=== PATIENT | male | born 1945 | race Caucasian/White ===

== ENCOUNTER 2022-07-18 14:07 | Inpatient (IN) ==
[2022-07-18] MEDS ORDERED: Albuterol/Ipratropium NEB.SOL (2.5/0.5 MG) 3 ML NEB.SOLN INH ONE (15:46)
[2022-07-18 15:47] LABS: ABS Basophils 0.1 10^3/uL (0.0-0.1); ABS Eosinophils 0.2 10^3/uL (0.0-0.5); ABS Lymphocytes 0.8 10^3/uL (1.0-4.8); ABS Monocytes 1.5 10^3/uL (0.0-1.1); ABS Neutrophils 12.9 10^3/uL (1.5-7.6); ABS Nucleated RBC 0.02 10^3/ul; Eosinophil % 1.4 %; Hematocrit 33.6 % (38-53); Hemoglobin 10.4 g/dL (13.2-16.3); Lymphocyte % 5.3 %; Mean Corpuscular Hemoglobin 23.4 pg (27-33); Mean Corpuscular Hgb Conc 31.1 g/dL (31-36); Mean Corpuscular Volume 75.4 fL (80-97); Mean Platelet Volume 8.1 fL (7.5-11.2); Nucleated Red Blood Cells % 0.1 /100 WBC (0.0-0.4); Platelet Count 261 10^3/uL (150-450); Red Blood Count 4.45 10^6/uL (4.06-5.63); Red Cell Distribution Width 22.9 % (12-17); White Blood Count 15.6 10^3/uL (3.6-10.2)
[2022-07-18] MEDS ORDERED: Furosemide 40 mg/4 ml IV VIAL IV SLOW PU ONE (16:04)
[2022-07-18 16:33] LABS: Albumin 3.6 g/dL (3.2-5.2); Albumin/Globulin Ratio 1.1 (1-3); Calcium 8.7 mg/dL (8.6-10.3); Creatinine, Serum 1.81 mg/dL (0.67-1.17); Globulin 3.3 g/dL (2-4); Potassium 4.8 mmol/L (3.5-5.0); Total Bilirubin 0.6 mg/dL (0.2-1.0); Total Protein 6.9 g/dL (6.4-8.9); eGFR CKD-EPI 37.8 (>60)
[2022-07-18 18:16] LABS: Ferritin 37.8 ng/mL (24-336)
[2022-07-18] MEDS ORDERED: Furosemide 40 mg/4 ml IV VIAL IV ONE ×2 (19:00→19:29)
[2022-07-18 19:12] LABS: Magnesium 2.5 mg/dL (1.9-2.7)
[2022-07-18] MEDS ORDERED: Dextrose 50% Syringe 50 ml 25 GM/50 ML SYRINGE IV PUSH PRN (19:36)
[2022-07-18] MEDS ORDERED: Albuterol HFA INHALER 8 gm MDI INH PRN (19:38)
[2022-07-18] MEDS ORDERED: Piperacillin/Tazobac ADVAN 3.375 GM in NS 0.9% 100 ml BAG 100 ML IV ONE (19:57)
[2022-07-18] MEDS ORDERED: Zosyn per Pharmacy NOTE FOLLOW UP SCH (20:00)
[2022-07-18] MEDS ORDERED: cefTRIAXone 1 gm/50 mL D5W 1 GM/50 ML BAG IV SCH (20:00)
[2022-07-18] MEDS ORDERED: Warfarin per PHARMACY **NOTE FOLLOW UP SCH (20:00)
[2022-07-18] MEDS ORDERED: Vancomycin 1,000 MG in NS 0.9% 250 ml 250 ML IVPB SCH (20:00)
[2022-07-18] MEDS ORDERED: Iron Sucrose 200 MG in NS 0.9% 100 ml BAG 100 ML IVPB SCH (20:00)
[2022-07-18] MEDS ORDERED: Vancomycin per Pharmacy 1 EA NOTE FOLLOW UP PRN (22:15)
[2022-07-18] MEDS ORDERED: Vancomycin 1,750 MG in NS 0.9% 500 ml BAG 500 ML IVPB ONE (23:00)
[2022-07-19] MEDS ORDERED: Zosyn 3.375 GM IV - ED ONCE IV ONE (02:00)
[2022-07-19 05:37] LABS: ABS Basophils 0.1 10^3/uL (0.0-0.1); ABS Eosinophils 0.2 10^3/uL (0.0-0.5); ABS Lymphocytes 0.6 10^3/uL (1.0-4.8); ABS Monocytes 1.1 10^3/uL (0.0-1.1); ABS Neutrophils 14.4 10^3/uL (1.5-7.6); Eosinophil % 1.3 %; Hematocrit 33.6 % (38-53); Hemoglobin 10.5 g/dL (13.2-16.3); Lymphocyte % 3.7 %; Mean Corpuscular Hemoglobin 23.6 pg (27-33); Mean Corpuscular Hgb Conc 31.3 g/dL (31-36); Mean Corpuscular Volume 75.2 fL (80-97); Mean Platelet Volume 7.9 fL (7.5-11.2); Platelet Count 257 10^3/uL (150-450); Red Blood Count 4.47 10^6/uL (4.06-5.63); Red Cell Distribution Width 22.5 % (12-17); White Blood Count 16.4 10^3/uL (3.6-10.2)
[2022-07-19 05:55] LABS: INR 2.93 (0.88-1.18)
[2022-07-19 06:40] LABS: Calcium 8.5 mg/dL (8.6-10.3); Creatinine, Serum 1.87 mg/dL (0.67-1.17); Magnesium 2.3 mg/dL (1.9-2.7); Potassium 4.1 mmol/L (3.5-5.0); eGFR CKD-EPI 36.3 (>60)
[2022-07-19] MEDS ORDERED: ZOSYN 3.375 GM Q8H per EXTENDED INFUSION IV SCH (08:00)
[2022-07-19] MEDS ORDERED: Furosemide 40 mg/4 ml IV VIAL IV SCH (09:00)
[2022-07-19] MEDS ORDERED: SPIRIVA Respimat (tiotropium) 2.5 mcg/inh Inhaler INH SCH (09:00)
[2022-07-19] MEDS: Aspirin EC 81 mg TAB.EC (enteric coated) PO SCH (09:17)
[2022-07-19] MEDS ORDERED: methylPREDNISolone SOD SUCC 125 mg 2 ML VIAL IV ONE (12:53)
[2022-07-19] MEDS ORDERED: Furosemide 40 mg/4 ml IV VIAL IV SLOW PU ONE (12:54)
[2022-07-19] MEDS: Albuterol/Ipratropium NEB.SOL (2.5/0.5 MG) 3 ML NEB.SOLN INH PRN ×2 (13:03→15:52)
[2022-07-19 13:38] LABS: PCO2 Arterial 40 mmHg (35-45); PO2 Arterial 75 mmHg (80-100)
[2022-07-19] MEDS ORDERED: methylPREDNISolone SOD SUCC 40 mg/ml 1 ml VIAL IV SCH (14:00)
[2022-07-19] MEDS: Furosemide 100 mg/10 ml IV 100 MG in NS 0.9% 100 ml BAG 90 ML IV SCH (15:33)
[2022-07-19] MEDS: ZOSYN 3.375 GM Q8H per EXTENDED INFUSION IV SCH (16:14)
[2022-07-19 16:44] LABS: Urine Appearance Cloudy; Urine Bilirubin Negative (Negative); Urine Blood Negative (Negative); Urine Color Yellow; Urine Glucose Negative (Negative); Urine Ketones Negative (Negative); Urine Nitrite Negative (Negative); Urine Protein Negative (Negative); Urine Specific Gravity 1.011 (1.002-1.030); Urine Urobilinogen Negative (Negative)
[2022-07-19] MEDS ORDERED: .Amiodarone 24HR ONLY IV Protocol Order Note IV ONE (17:15)
[2022-07-19] MEDS ORDERED: Amiodarone 150 mg IVPREMIX 150 MG/100 ML BAG IV ONE (17:15)
[2022-07-19] MEDS ORDERED: Amiodarone 360 MG IVPREMIX 360 MG/200 ML BAG IV SCH ×2 (17:30→23:30)
[2022-07-19 18:57] LABS: High Sensitivity Troponin 1 Hr 9 pg/mL (<20)
[2022-07-19] MEDS ORDERED: Iron Sucrose 200 MG in NS 0.9% 100 ml BAG 100 ML IVPB SCH (20:00)
[2022-07-19] MEDS: methylPREDNISolone SOD SUCC 40 mg/ml 1 ml VIAL IV SCH (21:13)
[2022-07-19] MEDS ORDERED: Vancomycin 1000 MG in NS 0.9% 250 ML IVPB SCH (22:00)
[2022-07-19] MEDS: Vancomycin 1000 MG in NS 0.9% 250 ML IVPB SCH (22:14)
[2022-07-20] MEDS: ZOSYN 3.375 GM Q8H per EXTENDED INFUSION IV SCH ×3 (00:07→15:56)
[2022-07-20 03:57] LABS: ABS Lymphocytes 0.4 10^3/uL (1.0-4.8); ABS Monocytes 0.2 10^3/uL (0.0-1.1); ABS Neutrophils 12.5 10^3/uL (1.5-7.6); Hematocrit 31.6 % (38-53); Hemoglobin 9.8 g/dL (13.2-16.3); Lymphocyte % 3.2 %; Mean Corpuscular Hemoglobin 23.5 pg (27-33); Mean Corpuscular Volume 75.7 fL (80-97); Mean Platelet Volume 8.1 fL (7.5-11.2); Platelet Count 241 10^3/uL (150-450); Red Blood Count 4.18 10^6/uL (4.06-5.63); Red Cell Distribution Width 22.7 % (12-17); White Blood Count 13.1 10^3/uL (3.6-10.2)
[2022-07-20 04:05] LABS: INR 2.55 (0.88-1.18)
[2022-07-20 04:07] LABS: CO2 Carbon Dioxide 27 mmol/L (22-32); Calcium 8.5 mg/dL (8.6-10.3); Chloride 101 mmol/L (101-111); Sodium 136 mmol/L (135-145)
[2022-07-20 04:12] LABS: Blood Urea Nitrogen 51 mg/dL (6-24); Creatinine, Serum 2.08 mg/dL (0.67-1.17); Glucose 166 mg/dL (70-100)
[2022-07-20 04:16] LABS: Anion Gap 8 mmol/L (2-16)
[2022-07-20 05:11] LABS: Magnesium 2.2 mg/dL (1.9-2.7); Potassium Redraw 3.9 mmol/L (3.5-5.0)
[2022-07-20] MEDS: methylPREDNISolone SOD SUCC 40 mg/ml 1 ml VIAL IV SCH ×3 (05:41→20:18)
[2022-07-20 08:44] LABS: Digoxin < 0.3 ng/ml (0.8-2.0)
[2022-07-20] MEDS: Aspirin EC 81 mg TAB.EC (enteric coated) PO SCH (08:53)
[2022-07-20] MEDS ORDERED: Warfarin per PHARMACY **NOTE FOLLOW UP SCH (11:00)
[2022-07-20] MEDS: Furosemide 100 mg/10 ml IV 100 MG in NS 0.9% 100 ml BAG 90 ML IV SCH (11:31)
[2022-07-20] MEDS ORDERED: Potassium Chloride LIQUID 20 MEQ/15 ML LIQUID PO ONE (16:17)
[2022-07-20] MEDS: Warfarin DAILY REMINDER **NOTE FOLLOW UP SCH (18:46)
[2022-07-20] MEDS: Insulin GLARGINE 100 un/ml 10 ml VIAL SUBCUT SCH (20:18)
[2022-07-20] MEDS: Vancomycin 1000 MG in NS 0.9% 250 ML IVPB SCH (22:15)
[2022-07-21] MEDS: ZOSYN 3.375 GM Q8H per EXTENDED INFUSION IV SCH ×3 (01:17→17:34)
[2022-07-21 05:40] LABS: Hematocrit 30.8 % (38-53); Hemoglobin 9.4 g/dL (13.2-16.3); Mean Corpuscular Hemoglobin 23.4 pg (27-33); Mean Corpuscular Hgb Conc 30.7 g/dL (31-36); Mean Corpuscular Volume 76.3 fL (80-97); Mean Platelet Volume 8.1 fL (7.5-11.2); Platelet Count 260 10^3/uL (150-450); Red Blood Count 4.03 10^6/uL (4.06-5.63); Red Cell Distribution Width 22.4 % (12-17); White Blood Count 19.4 10^3/uL (3.6-10.2)
[2022-07-21 05:47] LABS: INR 2.04 (0.88-1.18)
[2022-07-21 06:07] LABS: ABS Basophils 0.3 10^3/uL (0.0-0.1); ABS Lymphocytes 0.4 10^3/uL (1.0-4.8); ABS Monocytes 0.4 10^3/uL (0.0-1.1); ABS Neutrophils 18.2 10^3/uL (1.5-7.6); ABS Nucleated RBC 0.01 10^3/ul; Lymphocyte % 2.2 %
[2022-07-21 06:10] LABS: Calcium 8.8 mg/dL (8.6-10.3); Creatinine, Serum 2.25 mg/dL (0.67-1.17); Magnesium 2.3 mg/dL (1.9-2.7); Potassium 3.5 mmol/L (3.5-5.0); eGFR CKD-EPI 29.1 (>60)
[2022-07-21] MEDS: methylPREDNISolone SOD SUCC 40 mg/ml 1 ml VIAL IV SCH ×2 (07:41→20:46)
[2022-07-21] MEDS: Aspirin EC 81 mg TAB.EC (enteric coated) PO SCH (08:05)
[2022-07-21] MEDS: Furosemide 100 mg/10 ml IV 100 MG in NS 0.9% 100 ml BAG 90 ML IV SCH (08:31)
[2022-07-21] MEDS: Warfarin DAILY REMINDER **NOTE FOLLOW UP SCH (19:10)
[2022-07-21] MEDS: Haloperidol 5 mg/ml SDV IV/IM 5 MG/ML AMP IV SLOW PU PRN (19:42)
[2022-07-21] MEDS: Insulin GLARGINE 100 un/ml 10 ml VIAL SUBCUT SCH (21:18)
[2022-07-21] MEDS ORDERED: Vancomycin Trough Check NOTE FOLLOW UP ONE (21:30)
[2022-07-21] MEDS: Vancomycin 1000 MG in NS 0.9% 250 ML IVPB SCH (22:46)
[2022-07-22] MEDS: Furosemide 100 mg/10 ml IV 100 MG in NS 0.9% 100 ml BAG 90 ML IV SCH ×2 (01:50→16:53)
[2022-07-22] MEDS: Haloperidol 5 mg/ml SDV IV/IM 5 MG/ML AMP IV SLOW PU PRN (03:45)
[2022-07-22] MEDS ORDERED: ZOSYN 3.375 GM Q8H per EXTENDED INFUSION IV SCH (04:00)
[2022-07-22 04:26] LABS: ABS Lymphocytes 0.5 10^3/uL (1.0-4.8); ABS Monocytes 0.9 10^3/uL (0.0-1.1); ABS Neutrophils 15.6 10^3/uL (1.5-7.6); ABS Nucleated RBC 0.03 10^3/ul; Hematocrit 30.1 % (38-53); Hemoglobin 9.5 g/dL (13.2-16.3); Lymphocyte % 3.1 %; Mean Corpuscular Hemoglobin 23.7 pg (27-33); Mean Corpuscular Hgb Conc 31.5 g/dL (31-36); Mean Corpuscular Volume 75.4 fL (80-97); Mean Platelet Volume 7.6 fL (7.5-11.2); Nucleated Red Blood Cells % 0.2 /100 WBC (0.0-0.4); Platelet Count 253 10^3/uL (150-450); Red Blood Count 3.99 10^6/uL (4.06-5.63); Red Cell Distribution Width 22.9 % (12-17); White Blood Count 17.1 10^3/uL (3.6-10.2)
[2022-07-22 04:34] LABS: INR 2.14 (0.88-1.18)
[2022-07-22 04:57] LABS: Calcium 8.7 mg/dL (8.6-10.3); Creatinine, Serum 2.38 mg/dL (0.67-1.17); Magnesium 2.4 mg/dL (1.9-2.7); Potassium 3.6 mmol/L (3.5-5.0); eGFR CKD-EPI 27.2 (>60)
[2022-07-22] MEDS: Aspirin EC 81 mg TAB.EC (enteric coated) PO SCH (08:30)
[2022-07-22] MEDS: methylPREDNISolone SOD SUCC 40 mg/ml 1 ml VIAL IV SCH ×2 (08:31→20:55)
[2022-07-22] MEDS ORDERED: KCL 20 MEQ/100 ML IVPREMIX 20 MEQ/100 ML BAG IV ONE (09:58)
[2022-07-22] MEDS: Warfarin DAILY REMINDER **NOTE FOLLOW UP SCH (17:03)
[2022-07-22] MEDS: Insulin GLARGINE 100 un/ml 10 ml VIAL SUBCUT SCH (20:55)
[2022-07-22] MEDS: Dexmedetomidine 1,000 MCG in NS 0.9% 250 ml 240 ML IV SCH (23:00)
[2022-07-23 06:16] LABS: ABS Lymphocytes 0.5 10^3/uL (1.0-4.8); ABS Monocytes 0.4 10^3/uL (0.0-1.1); ABS Neutrophils 11.1 10^3/uL (1.5-7.6); ABS Nucleated RBC 0.01 10^3/ul; Hematocrit 27.9 % (38-53); Hemoglobin 8.7 g/dL (13.2-16.3); Lymphocyte % 4.5 %; Mean Corpuscular Hemoglobin 24.3 pg (27-33); Mean Corpuscular Hgb Conc 31.2 g/dL (31-36); Mean Corpuscular Volume 77.8 fL (80-97); Platelet Count 210 10^3/uL (150-450); Red Blood Count 3.59 10^6/uL (4.06-5.63); Red Cell Distribution Width 22.7 % (12-17)
[2022-07-23 06:20] LABS: INR 3.54 (0.88-1.18)
[2022-07-23] MEDS: Furosemide 100 mg/10 ml IV 100 MG in NS 0.9% 100 ml BAG 90 ML IV SCH ×2 (06:24→09:06)
[2022-07-23 06:39] LABS: Calcium 8.7 mg/dL (8.6-10.3); Creatinine, Serum 2.07 mg/dL (0.67-1.17); Magnesium 2.4 mg/dL (1.9-2.7); Potassium 3.4 mmol/L (3.5-5.0); eGFR CKD-EPI 32.2 (>60)
[2022-07-23] MEDS ORDERED: KCL 20 MEQ/100 ML IVPREMIX 20 MEQ/100 ML BAG IV ONE (07:00)
[2022-07-23] MEDS: Aspirin EC 81 mg TAB.EC (enteric coated) PO SCH (09:32)
[2022-07-23] MEDS: methylPREDNISolone SOD SUCC 40 mg/ml 1 ml VIAL IV SCH (09:51)
[2022-07-23] MEDS ORDERED: KCL 20 MEQ/100 ML IVPREMIX 0 MEQ/0 ML BAG ONE (10:57)
[2022-07-23 13:25] LABS: Albumin 3.1 g/dL (3.2-5.2); Albumin/Globulin Ratio 1.1 (1-3); Calcium 8.7 mg/dL (8.6-10.3); Creatinine, Serum 1.9 mg/dL (0.67-1.17); Globulin 2.8 g/dL (2-4); Magnesium 2.3 mg/dL (1.9-2.7); Potassium 3.8 mmol/L (3.5-5.0); Total Bilirubin 0.5 mg/dL (0.2-1.0); Total Protein 5.9 g/dL (6.4-8.9); eGFR CKD-EPI 35.7 (>60)
[2022-07-23] MEDS: Dexmedetomidine 1,000 MCG in NS 0.9% 250 ml 240 ML IV SCH (14:42)
[2022-07-23] MEDS ORDERED: Warfarin - No Order Today **NOTE FOLLOW UP ONE (17:00)
[2022-07-23] MEDS: Warfarin DAILY REMINDER **NOTE FOLLOW UP SCH (17:19)
[2022-07-23] MEDS: Insulin GLARGINE 100 un/ml 10 ml VIAL SUBCUT SCH (22:05)
[2022-07-24] MEDS: Furosemide 100 mg/10 ml IV 100 MG in NS 0.9% 100 ml BAG 90 ML IV SCH (01:32)
[2022-07-24] MEDS: Dexmedetomidine 1,000 MCG in NS 0.9% 250 ml 240 ML IV SCH ×2 (02:11→09:55)
[2022-07-24 02:29] LABS: Calcium 8.9 mg/dL (8.6-10.3); Creatinine, Serum 1.94 mg/dL (0.67-1.17); Potassium 3.5 mmol/L (3.5-5.0); eGFR CKD-EPI 34.8 (>60)
[2022-07-24 06:37] LABS: INR 3.57 (0.88-1.18)
[2022-07-24 06:42] LABS: Hematocrit 28.8 % (38-53); Hemoglobin 9.1 g/dL (13.2-16.3); Mean Corpuscular Hemoglobin 24.1 pg (27-33); Mean Corpuscular Hgb Conc 31.5 g/dL (31-36); Mean Corpuscular Volume 76.6 fL (80-97); Mean Platelet Volume 8.3 fL (7.5-11.2); Platelet Count 203 10^3/uL (150-450); Red Blood Count 3.76 10^6/uL (4.06-5.63); Red Cell Distribution Width 23.9 % (12-17); White Blood Count 14.9 10^3/uL (3.6-10.2)
[2022-07-24 07:02] LABS: ALT 17 U/L (7-52); Albumin 3.1 g/dL (3.2-5.2); Albumin/Globulin Ratio 1.1 (1-3); Alkaline Phosphatase 152 U/L (35-149); Blood Urea Nitrogen 113 mg/dL (6-24); CO2 Carbon Dioxide 35 mmol/L (22-32); Calcium 9.2 mg/dL (8.6-10.3); Chloride 99 mmol/L (101-111); Creatinine, Serum 1.83 mg/dL (0.67-1.17); Globulin 2.9 g/dL (2-4); Glucose 163 mg/dL (70-100); Magnesium 2.4 mg/dL (1.9-2.7); Sodium 143 mmol/L (135-145); eGFR CKD-EPI 37.3 (>60)
[2022-07-24 07:04] LABS: Anion Gap 9 mmol/L (2-16)
[2022-07-24 08:38] LABS: Anisocytosis 2+; Microcytosis 1+; Schistocytes 1+
[2022-07-24 08:39] LABS: Acanthocytes 1+
[2022-07-24 08:40] LABS: ABS Lymphocytes 0.9 10^3/uL (1.0-4.8); ABS Monocytes 0.8 10^3/uL (0.0-1.1); ABS Neutrophils 13.3 10^3/uL (1.5-7.6); ABS Nucleated RBC 0.01 10^3/ul; Lymphocyte % 5.7 %
[2022-07-24] MEDS: Aspirin EC 81 mg TAB.EC (enteric coated) PO SCH (08:55)
[2022-07-24] MEDS ORDERED: Furosemide 100 mg/10 ml IV 100 MG in NS 0.9% 100 ml BAG 90 ML IV SCH (09:30)
[2022-07-24] MEDS: NS 0.9% IVPB SCH (10:01)
[2022-07-24] MEDS: FERRIC GLUCONATE IVPB SCH (10:01)
[2022-07-24 13:50] LABS: Calcium 8.9 mg/dL (8.6-10.3); Creatinine, Serum 1.7 mg/dL (0.67-1.17); Magnesium 2.3 mg/dL (1.9-2.7); eGFR CKD-EPI 40.8 (>60)
[2022-07-24] MEDS ORDERED: Warfarin - No Order Today **NOTE FOLLOW UP ONE (17:00)
[2022-07-24] MEDS: Warfarin DAILY REMINDER **NOTE FOLLOW UP SCH (21:34)
[2022-07-24] MEDS: Insulin GLARGINE 100 un/ml 10 ml VIAL SUBCUT SCH (21:45)
[2022-07-25] MEDS: Senna TAB 8.6 mg TAB PO PRN (00:33)
[2022-07-25 05:23] LABS: ABS Lymphocytes 0.8 10^3/uL (1.0-4.8); ABS Neutrophils 12.7 10^3/uL (1.5-7.6); ABS Nucleated RBC 0.03 10^3/ul; Eosinophil % 0.1 %; Hematocrit 27.3 % (38-53); Hemoglobin 8.7 g/dL (13.2-16.3); Lymphocyte % 5.6 %; Mean Corpuscular Hemoglobin 24.3 pg (27-33); Mean Corpuscular Hgb Conc 31.7 g/dL (31-36); Mean Corpuscular Volume 76.6 fL (80-97); Mean Platelet Volume 8.3 fL (7.5-11.2); Nucleated Red Blood Cells % 0.2 /100 WBC (0.0-0.4); Platelet Count 181 10^3/uL (150-450); Red Blood Count 3.57 10^6/uL (4.06-5.63); Red Cell Distribution Width 23.9 % (12-17); White Blood Count 14.5 10^3/uL (3.6-10.2)
[2022-07-25 05:36] LABS: Potassium, Whole Blood 3.7 mmol/L (3.4-4.5)
[2022-07-25 06:11] LABS: INR 3.11 (0.88-1.18)
[2022-07-25 06:16] LABS: Albumin 3.2 g/dL (3.2-5.2); Albumin/Globulin Ratio 1.2 (1-3); Calcium 9.1 mg/dL (8.6-10.3); Creatinine, Serum 1.75 mg/dL (0.67-1.17); Globulin 2.7 g/dL (2-4); Magnesium 2.4 mg/dL (1.9-2.7); Total Bilirubin 0.7 mg/dL (0.2-1.0); Total Protein 5.9 g/dL (6.4-8.9); eGFR CKD-EPI 39.4 (>60)
[2022-07-25] MEDS ORDERED: acetaZOLAMIDE IV 500 MG in NS 0.9% 50 ML 50 ML IVPB ONE (07:45)
[2022-07-25] MEDS: Dexmedetomidine 1,000 MCG in NS 0.9% 250 ml 240 ML IV SCH (08:42)
[2022-07-25] MEDS: Aspirin EC 81 mg TAB.EC (enteric coated) PO SCH (08:46)
[2022-07-25] MEDS ORDERED: Potassium Chlor 20 meq TAB.ER PO ONE (08:53)
[2022-07-25] MEDS: FERRIC GLUCONATE IVPB SCH ×2 (09:59→10:28)
[2022-07-25] MEDS: NS 0.9% IVPB SCH ×2 (09:59→10:28)
[2022-07-25] MEDS: Magnesium Hydroxide LIQ 30 ML UDC PO PRN (11:32)
[2022-07-25] MEDS: Warfarin DAILY REMINDER **NOTE FOLLOW UP SCH (17:37)
[2022-07-25] MEDS: Insulin GLARGINE 100 un/ml 10 ml VIAL SUBCUT SCH (20:17)
[2022-07-26] MEDS: Polyethylene Glycol 3350 17 GM PACKET PO PRN ×2 (00:30→09:38)
[2022-07-26] MEDS ORDERED: Haloperidol 5 mg/ml SDV IV/IM 5 MG/ML AMP IV SLOW PU ONE ×2 (02:55→02:57)
[2022-07-26] MEDS ORDERED: Haloperidol 5 mg/ml SDV IV/IM 5 MG/ML AMP ONE (03:03)
[2022-07-26 05:25] LABS: ABS Basophils 0.1 10^3/uL (0.0-0.1); ABS Lymphocytes 1.2 10^3/uL (1.0-4.8); ABS Monocytes 1.4 10^3/uL (0.0-1.1); ABS Neutrophils 15.8 10^3/uL (1.5-7.6); ABS Nucleated RBC 0.02 10^3/ul; Eosinophil % 0.2 %; Hematocrit 26.3 % (38-53); Hemoglobin 8.3 g/dL (13.2-16.3); Lymphocyte % 6.5 %; Mean Corpuscular Hemoglobin 24.3 pg (27-33); Mean Corpuscular Hgb Conc 31.4 g/dL (31-36); Mean Corpuscular Volume 77.3 fL (80-97); Mean Platelet Volume 8.3 fL (7.5-11.2); Nucleated Red Blood Cells % 0.1 /100 WBC (0.0-0.4); Platelet Count 183 10^3/uL (150-450); Red Cell Distribution Width 23.9 % (12-17); White Blood Count 18.4 10^3/uL (3.6-10.2)
[2022-07-26 05:30] LABS: INR 2.22 (0.88-1.18)
[2022-07-26 05:57] LABS: Albumin 3.2 g/dL (3.2-5.2); Albumin/Globulin Ratio 1.2 (1-3); Creatinine, Serum 1.66 mg/dL (0.67-1.17); Globulin 2.6 g/dL (2-4); Magnesium 2.6 mg/dL (1.9-2.7); Potassium 3.6 mmol/L (3.5-5.0); Total Bilirubin 0.7 mg/dL (0.2-1.0); Total Protein 5.8 g/dL (6.4-8.9); eGFR CKD-EPI 41.9 (>60)
[2022-07-26] MEDS ORDERED: Potassium Chlor 20 meq TAB.ER PO ONE (08:53)
[2022-07-26] MEDS: Aspirin EC 81 mg TAB.EC (enteric coated) PO SCH (09:32)
[2022-07-26] MEDS: Senna TAB 8.6 mg TAB PO PRN (09:38)
[2022-07-26] MEDS: NS 0.9% IVPB SCH (10:45)
[2022-07-26] MEDS: FERRIC GLUCONATE IVPB SCH (10:45)
[2022-07-26 11:38] LABS: Urine Appearance Cloudy; Urine Bilirubin Negative (Negative); Urine Blood 3+ (Negative); Urine Color Yellow; Urine Glucose Negative (Negative); Urine Ketones Negative (Negative); Urine Nitrite Negative (Negative); Urine Protein Negative (Negative); Urine Specific Gravity 1.011 (1.002-1.030); Urine Urobilinogen Negative (Negative)
[2022-07-26 12:13] LABS: Urine Bacteria 1+ (Absent); Urine Red Blood Cell 3+(>10/hpf) (Absent); Urine White Blood Cell 2+(11-20/hpf) (Absent)
[2022-07-26] MEDS: Warfarin DAILY REMINDER **NOTE FOLLOW UP SCH (16:52)
[2022-07-26] MEDS: Insulin GLARGINE 100 un/ml 10 ml VIAL SUBCUT SCH (21:49)
[2022-07-27 06:23] LABS: INR 2.28 (0.88-1.18)
[2022-07-27] MEDS: Aspirin EC 81 mg TAB.EC (enteric coated) PO SCH (08:32)
[2022-07-27] MEDS: Magnesium Hydroxide LIQ 30 ML UDC PO PRN (08:39)
[2022-07-27 09:51] LABS: ABS Eosinophils 0.6 10^3/uL (0.0-0.5); ABS Lymphocytes 1.1 10^3/uL (1.0-4.8); ABS Monocytes 1.3 10^3/uL (0.0-1.1); ABS Neutrophils 13.6 10^3/uL (1.5-7.6); ABS Nucleated RBC 0.02 10^3/ul; Eosinophil % 3.4 %; Hematocrit 28.5 % (38-53); Hemoglobin 8.8 g/dL (13.2-16.3); Lymphocyte % 6.8 %; Mean Corpuscular Hemoglobin 24.5 pg (27-33); Nucleated Red Blood Cells % 0.1 /100 WBC (0.0-0.4); Platelet Count 169 10^3/uL (150-450); Red Cell Distribution Width 23.8 % (12-17); White Blood Count 16.6 10^3/uL (3.6-10.2)
[2022-07-27 10:02] LABS: Albumin 3.2 g/dL (3.2-5.2); Albumin/Globulin Ratio 1.3 (1-3); Calcium 9.2 mg/dL (8.6-10.3); Creatinine, Serum 1.35 mg/dL (0.67-1.17); Globulin 2.4 g/dL (2-4); Potassium 3.8 mmol/L (3.5-5.0); Total Bilirubin 0.8 mg/dL (0.2-1.0); Total Protein 5.6 g/dL (6.4-8.9); eGFR CKD-EPI 53.7 (>60)
[2022-07-27] MEDS: Acetaminophen IV 1 GM/100ML 1,000 MG/100 ML BAG IV SCH ×3 (10:35→23:51)
[2022-07-27] MEDS: Lactated Ringers 1000 ml BAG 1,000 ML IV SCH ×2 (11:54→20:12)
[2022-07-27 12:27] LABS: Folate 7.93 ng/mL (5.90-24.80)
[2022-07-27] MEDS: Warfarin DAILY REMINDER **NOTE FOLLOW UP SCH (16:49)
[2022-07-27] MEDS: Insulin GLARGINE 100 un/ml 10 ml VIAL SUBCUT SCH (21:01)
[2022-07-28] MEDS: Lactated Ringers 1000 ml BAG 1,000 ML IV SCH ×3 (04:19→21:39)
[2022-07-28] MEDS: Acetaminophen IV 1 GM/100ML 1,000 MG/100 ML BAG IV SCH ×3 (05:40→17:48)
[2022-07-28 06:19] LABS: INR 2.75 (0.88-1.18)
[2022-07-28 07:48] LABS: ABS Eosinophils 0.5 10^3/uL (0.0-0.5); ABS Lymphocytes 1.2 10^3/uL (1.0-4.8); ABS Neutrophils 12.6 10^3/uL (1.5-7.6); ABS Nucleated RBC 0.01 10^3/ul; Eosinophil % 3.3 %; Hematocrit 25.7 % (38-53); Lymphocyte % 7.9 %; Mean Corpuscular Hemoglobin 25.2 pg (27-33); Mean Corpuscular Hgb Conc 31.2 g/dL (31-36); Mean Corpuscular Volume 80.9 fL (80-97); Mean Platelet Volume 9.2 fL (7.5-11.2); Platelet Count 167 10^3/uL (150-450); Red Blood Count 3.18 10^6/uL (4.06-5.63); Red Cell Distribution Width 25.4 % (12-17); White Blood Count 15.4 10^3/uL (3.6-10.2)
[2022-07-28 07:58] LABS: Calcium 8.7 mg/dL (8.6-10.3); Creatinine, Serum 1.17 mg/dL (0.67-1.17); Potassium 3.8 mmol/L (3.5-5.0); eGFR CKD-EPI 63.8 (>60)
[2022-07-28] MEDS: Aspirin EC 81 mg TAB.EC (enteric coated) PO SCH (08:09)
[2022-07-28] MEDS: Senna TAB 8.6 mg TAB PO PRN (08:10)
[2022-07-28] MEDS: Magnesium Hydroxide LIQ 30 ML UDC PO PRN (08:14)
[2022-07-28 08:39] LABS: Anisocytosis 2+; Basophilic Stippling 2+; Polychromasia 1+; Schistocytes 1+
[2022-07-28] MEDS: Polyethylene Glycol 3350 17 GM PACKET PO PRN (10:39)
[2022-07-28] MEDS: Ferric Gluconate IV 125 MG in NS 0.9% 100 ml BAG 100 ML IVPB SCH (12:16)
[2022-07-28] MEDS ORDERED: Glycerin ADULT 2.4 gm SUPP PR ONE (13:27)
[2022-07-28] MEDS: Warfarin DAILY REMINDER **NOTE FOLLOW UP SCH (18:21)
[2022-07-28] MEDS: Insulin GLARGINE 100 un/ml 10 ml VIAL SUBCUT SCH (20:32)
[2022-07-29] MEDS: Acetaminophen IV 1 GM/100ML 1,000 MG/100 ML BAG IV SCH ×4 (00:27→18:19)
[2022-07-29 06:20] LABS: INR 3.6 (0.88-1.18)
[2022-07-29] MEDS: Lactated Ringers 1000 ml BAG 1,000 ML IV SCH (06:24)
[2022-07-29 06:28] LABS: Calcium 8.7 mg/dL (8.6-10.3); Creatinine, Serum 1.01 mg/dL (0.67-1.17); Potassium 3.9 mmol/L (3.5-5.0); eGFR CKD-EPI 76.1 (>60)
[2022-07-29] MEDS ORDERED: Glycerin ADULT 2.4 gm SUPP PR ONE ×2 (07:16→16:14)
[2022-07-29] MEDS: Ferric Gluconate IV 125 MG in NS 0.9% 100 ml BAG 100 ML IVPB SCH (08:34)
[2022-07-29] MEDS: Aspirin EC 81 mg TAB.EC (enteric coated) PO SCH (08:35)
[2022-07-29] MEDS: Senna TAB 8.6 mg TAB PO PRN (12:09)
[2022-07-29] MEDS: Magnesium Hydroxide LIQ 30 ML UDC PO PRN (12:22)
[2022-07-29 16:21] LABS: Urine Appearance Clear; Urine Bilirubin Negative (Negative); Urine Blood 2+ (Negative); Urine Color Yellow; Urine Glucose Negative (Negative); Urine Ketones Negative (Negative); Urine Nitrite Negative (Negative); Urine Protein Negative (Negative); Urine Specific Gravity 1.021 (1.002-1.030); Urine Urobilinogen Negative (Negative)
[2022-07-29 16:25] LABS: Urine Bacteria Absent (Absent); Urine Red Blood Cell 3+(>10/hpf) (Absent); Urine White Blood Cell Trace(0-5/hpf) (Absent)
[2022-07-29] MEDS: Warfarin DAILY REMINDER **NOTE FOLLOW UP SCH (17:27)
[2022-07-29] MEDS: Insulin GLARGINE 100 un/ml 10 ml VIAL SUBCUT SCH (20:27)
[2022-07-30] MEDS: Acetaminophen IV 1 GM/100ML 1,000 MG/100 ML BAG IV SCH ×2 (01:12→06:09)
[2022-07-30 06:22] LABS: INR 3.52 (0.88-1.18)
[2022-07-30 07:29] LABS: PCO2 Arterial 62 mmHg (35-45); PO2 Arterial 83 mmHg (80-100)
[2022-07-30 07:37] LABS: Hematocrit 27.3 % (38-53); Hemoglobin 8.3 g/dL (13.2-16.3); Mean Corpuscular Hemoglobin 25.5 pg (27-33); Mean Corpuscular Hgb Conc 30.5 g/dL (31-36); Mean Corpuscular Volume 83.6 fL (80-97); Mean Platelet Volume 8.2 fL (7.5-11.2); Platelet Count 199 10^3/uL (150-450); Red Blood Count 3.26 10^6/uL (4.06-5.63); Red Cell Distribution Width 26.4 % (12-17); White Blood Count 16.7 10^3/uL (3.6-10.2)
[2022-07-30] MEDS ORDERED: Bumetanide IV 0.25 MG/ML 4 ml VIAL (1 mg) IV SLOW PU SCH (08:00)
[2022-07-30] MEDS: Bumetanide IV 0.25 MG/ML 4 ml VIAL (1 mg) IV SLOW PU SCH ×2 (08:13→20:40)
[2022-07-30 08:19] LABS: Calcium 8.6 mg/dL (8.6-10.3); Creatinine, Serum 1.11 mg/dL (0.67-1.17); Magnesium 2.7 mg/dL (1.9-2.7); Phosphorus 2.2 mg/dL (2.5-5.0); Potassium 4.1 mmol/L (3.5-5.0)
[2022-07-30 08:54] LABS: ABS Basophils 0.1 10^3/uL (0.0-0.1); ABS Eosinophils 0.3 10^3/uL (0.0-0.5); ABS Lymphocytes 0.7 10^3/uL (1.0-4.8); ABS Monocytes 1.1 10^3/uL (0.0-1.1); ABS Neutrophils 14.6 10^3/uL (1.5-7.6); ABS Nucleated RBC 0.01 10^3/ul; Eosinophil % 1.6 %
[2022-07-30] MEDS: Aspirin EC 81 mg TAB.EC (enteric coated) PO SCH (10:30)
[2022-07-30] MEDS ORDERED: Acetaminophen IV 1 GM/100ML 1,000 MG/100 ML BAG IV PRN (10:49)
[2022-07-30] MEDS: Metoprolol Tartrate 5 mg VIAL 5 ml VIAL (1 mg/ml) IV PRN ×3 (10:49→23:58)
[2022-07-30] MEDS: Ferric Gluconate IV 125 MG in NS 0.9% 100 ml BAG 100 ML IVPB SCH (11:20)
[2022-07-30] MEDS: Warfarin DAILY REMINDER **NOTE FOLLOW UP SCH (20:25)
[2022-07-30] MEDS: Insulin GLARGINE 100 un/ml 10 ml VIAL SUBCUT SCH (20:51)
[2022-07-30] MEDS ORDERED: Metoprolol Tartrate 5 mg VIAL 5 ml VIAL (1 mg/ml) IV ONE (21:20)
[2022-07-30] MEDS ORDERED: Acetaminophen IV 1 GM/100ML 500 MG/50 ML BAG IV PRN (21:20)
[2022-07-30] MEDS ORDERED: Metoprolol Tartrate 5 mg VIAL 5 ml VIAL (1 mg/ml) ONE (21:23)
[2022-07-31 01:42] LABS: PCO2 Arterial 62 mmHg (35-45); PO2 Arterial 212 mmHg (80-100)
[2022-07-31 04:13] LABS: Hematocrit 25.2 % (38-53); Hemoglobin 7.9 g/dL (13.2-16.3); Mean Corpuscular Hemoglobin 25.5 pg (27-33); Mean Corpuscular Hgb Conc 31.1 g/dL (31-36); Mean Platelet Volume 8.5 fL (7.5-11.2); Platelet Count 227 10^3/uL (150-450); Red Blood Count 3.08 10^6/uL (4.06-5.63); Red Cell Distribution Width 27.9 % (12-17); White Blood Count 17.9 10^3/uL (3.6-10.2)
[2022-07-31 04:47] LABS: Calcium 8.6 mg/dL (8.6-10.3); Creatinine, Serum 1.26 mg/dL (0.67-1.17); Magnesium 2.3 mg/dL (1.9-2.7); Potassium 3.9 mmol/L (3.5-5.0); eGFR CKD-EPI 58.4 (>60)
[2022-07-31] MEDS: Aspirin EC 81 mg TAB.EC (enteric coated) PO SCH (11:14)
[2022-07-31] MEDS: Bumetanide IV 0.25 MG/ML 4 ml VIAL (1 mg) IV SLOW PU SCH ×2 (11:30→20:22)
[2022-07-31] MEDS: Morphine 2 MG/ML SYRINGE IV PRN ×2 (17:04→21:35)
[2022-07-31] MEDS: Warfarin DAILY REMINDER **NOTE FOLLOW UP SCH (17:32)
[2022-07-31] MEDS: Metoprolol Tartrate 5 mg VIAL 5 ml VIAL (1 mg/ml) IV PRN (19:11)
[2022-07-31] MEDS: Insulin GLARGINE 100 un/ml 10 ml VIAL SUBCUT SCH (19:23)
[2022-08-01] MEDS: Morphine 2 MG/ML SYRINGE IV PRN ×2 (01:04→06:42)
[2022-08-01] MEDS: Metoprolol Tartrate 5 mg VIAL 5 ml VIAL (1 mg/ml) IV PRN ×2 (03:30→03:58)
[2022-08-01] MEDS ORDERED: Metoprolol Tartrate 5 mg VIAL 5 ml VIAL (1 mg/ml) IV ONE (03:56)
[2022-08-01 06:52] VITALS: BP 51/35
== END 2022-08-01 06:44 | disposition expired | DRG 291 ==
LOC: ED 14:07 → EDHOLD 18:05 → SUATTDRO 18:05 → MEDTELE 07-19 11:57 → ICU 07-19 16:09 → MED 07-26 16:00 → ICU 07-30 08:15
PROVIDERS: ADMIT Internal Medicine; ATTEND Hospitalist